=== PATIENT | female | born 1975 | race Caucasian/White ===

== ENCOUNTER 2017-06-02 18:04 | Emergency (ER) | payer OTHER ==
[~2017-06-02] VITALS: Ht 162.6 cm; Wt 85.7 kg
[2017-06-02 18:09] VITALS: BP 129/73; Ht 162.6 cm; Wt 85.7 kg
== END 2017-06-02 18:35 | disposition left against medical advice (07) ==
LOC: ED 18:04
DX: R07.89 Other chest pain (principal); R06.02 Shortness of breath; R05 Cough
CPT/HCPCS: G0480; J7030; J7613; J7644

== ENCOUNTER 2017-07-08 18:29 | Emergency (ER) | payer OTHER ==
[~2017-07-08] VITALS: Ht 160 cm; Wt 81.6 kg
[2017-07-08 18:35] VITALS: BP 97/45; Ht 160 cm; Wt 81.6 kg
== END 2017-07-08 19:47 | disposition left against medical advice (07) ==
LOC: ED 18:29
DX: S93.401A Sprain of unspecified ligament of right ankle, initial encounter (principal); W22.8XXA Striking against or struck by other objects, initial encounter; Y93.89 Activity, other specified; Y92.89 Other specified places as the place of occurrence of the external cause; Y99.8 Other external cause status

== ENCOUNTER 2017-09-30 13:38 | Emergency (ER) | payer OTHER ==
[~2017-09-30] VITALS: Ht 162.6 cm; Wt 84.4 kg
[2017-09-30 13:52] VITALS: Ht 162.6 cm; Wt 84.4 kg
[2017-09-30 17:07] VITALS: BP 110/87
== END 2017-09-30 17:07 | disposition home or self-care (01) ==
LOC: ED 13:38
DX: F41.9 Anxiety disorder, unspecified (principal); G47.09 Other insomnia; F32.9 Major depressive disorder, single episode, unspecified; Z86.69 Personal history of other diseases of the nervous system and sense organs
CPT/HCPCS: J2060; J3486